=== PATIENT | female | born 1955 | race Caucasian/White ===

== ENCOUNTER 2018-10-06 14:37 | Emergency (ER) | payer OTHER ==
[2018-10-06 14:53] VITALS: BMI 21.2
--- NOTE | 2018-10-06 14:57 | PDOC ---
History of Present Illness - General Chief Complaint: Blood Pressure Problem Stated Complaint: FOR 1 WEEK HAS HAD ELEVATED HEART RATE AND ELEVA Time Seen by Provider: 10/06/18 14:42 Past History - Past Medical History Allergies/Adverse Reactions: Allergies Allergy/AdvReac Type Severity Reaction Status Date / Time No Known Allergies Allergy Unverified 10/06/18 14:40 Home Medications: Ambulatory Orders NK [No Known Home Medication] 10/06/18 COPD: No Other medical history: PARA THYROID - Suicide/Smoking/Psychosocial Hx Smoking History: Former smoker Have you smoked in the past 12 months: No If you are a former smoker, when did you quit?: 34 YEARS AGO Information on smoking cessation initiated: No Hx Alcohol Use: Yes (SOCIAL) Drug/Substance Use Hx: No *Physical Exam - Vital Signs Last Vital Signs Temp Pulse Resp BP Pulse Ox 97.7 F 95 H 16 137/93 100 10/06/18 14:40 10/06/18 14:40 10/06/18 14:40 10/06/18 14:40 10/06/18 14:40 Moderate Sedation - Procedure Monitoring Vital Signs: Procedure Monitoring Vital Signs Temperature 97.7 F 10/06/18 14:40 Pulse Rate 95 H 10/06/18 14:40 Respiratory Rate 16 10/06/18 14:40 Blood Pressure 137/93 10/06/18 14:40 O2 Sat by Pulse Oximetry (%) 100 10/06/18 14:40 *DC/Admit/Observation/Transfer - Discharge Dispostion Condition at time of disposition: Stable - Referrals - Patient Instructions - Post Discharge Activity
--- NOTE | 2018-10-06 16:16 | PDOC ---
Attending Attestation - Resident Resident Name: Isha Corcoran - ED Attending Attestation I have performed the following: I have examined & evaluated the patient, The case was reviewed & discussed with the resident, I agree w/resident's findings & plan - HPI HPI: 10/06/18 16:14 Pt comes with chest tachycardia and elevated BP. No chest pain and no fever and no SOB and no smoking and no other illness. - Physicial Exam PE: 10/06/18 16:15 Agree with resident exam. Pt has a totally normal exam - Medical Decision Making 10/06/18 16:15 CXR normal EKG NSR; RBBB 10/06/18 16:16 Pt's labs pending 10/06/18 17:05 All labs normal; d-dimer pending. 10/06/18 18:15 Pt signed out to the night ER doc
[2018-10-06 16:24] LABS: BASO % 0.5 % (0-2.0); EOS % 2.2 % (0-4.5); HEMATOCRIT 34.6 % (32.4-45.2); HEMOGLOBIN 11.6 GM/dl (10.7-15.3); LYMPH % 18.5 % (8-40); MCH 28.1 pg (25.7-33.7); MCHC 33.5 g/dl (32.0-36.0); MEAN PLT VOLUME 9.1 fl (7.5-11.1); MONO % 10.4 % (3.8-10.2); NEUT % 68.4 % (42.8-82.8); PLATELET COUNT 212 K/MM3 (134-434); RBC 4.12 M/mm3 (3.60-5.2); WHITE BLOOD COUNT 3.9 K/mm3 (4.0-10.8)
[2018-10-06 16:26] LABS: ALBUMIN 4.1 g/dl (3.4-5.0); ALK PHOS 90 U/L (45-117); ANION GAP 7 MMOL/L (8-16); BILIRUBIN,TOTAL 0.5 mg/dl (0.2-1); BLOOD UREA NITROGEN 26 mg/dl (7-18); CALCIUM 9.1 mg/dl (8.5-10); CHLORIDE 102 mmol/L (98-107); CO2 27 mmol/L (21-32); CREATININE 0.9 mg/dl (0.55-1.3); GLUCOSE,RANDOM 94 mg/dl (74-106); POTASSIUM 3.8 mmol/L (3.5-5.1); SGOT/AST 21 U/L (15-37); SGPT/ALT 17 U/L (13-61); SODIUM 136 mmol/L (136-145); TOT PROT 6.5 g/dl (6.4-8.2)
--- NOTE | 2018-10-06 19:21 | PDOC ---
*Physical Exam - Vital Signs Last Vital Signs Temp Pulse Resp BP Pulse Ox 97.7 F 80 16 118/55 L 100 10/06/18 14:40 10/06/18 15:58 10/06/18 15:58 10/06/18 18:23 10/06/18 14:40 ED Treatment Course - LABORATORY CBC & Chemistry Diagram: 10/06/18 15:34 10/06/18 15:34 - ADDITIONAL ORDERS Additional order review: Laboratory Results 10/06/18 10/06/18 10/06/18 15:34 15:34 15:34 D-Dimer < 215 Sodium 136 Potassium 3.8 Chloride 102 Carbon Dioxide 27 Anion Gap 7 L BUN 26 H Creatinine 0.9 Creat Clearance w eGFR > 60 Random Glucose 94 Calcium 9.1 Total Bilirubin 0.5 AST 21 ALT 17 Alkaline Phosphatase 90 Creatine Kinase 78 Troponin I < 0.03 Total Protein 6.5 Albumin 4.1 10/06/18 15:34 RBC 4.12 MCV 84.0 MCHC 33.5 RDW 13.0 MPV 9.1 Neutrophils % 68.4 Lymphocytes % 18.5 Monocytes % 10.4 H Eosinophils % 2.2 Basophils % 0.5 Progress Note - Progress Note Progress Note: Care of this patient was transferred to ma from Dr. Davidson at 1800 hrs. Patient is a 63-year-old female who comes in complaining of some chest palpitations otherwise no chest pain, shortness of breath or other complaints. Patient's EKG showed a right bundle branch block but otherwise normal Patient had a workup including cardiac and d-dimer all of which were normal Patient will be discharged home and will follow-up with her primary care doctor. *DC/Admit/Observation/Transfer Diagnosis at time of Disposition: Heart palpitations - Discharge Dispostion Disposition: HOME Condition at time of disposition: Stable Decision to Admit order: No - Referrals - Patient Instructions Additional Instructions: Your workup was normal for any acute problems or heart problems. Return to the emergency department immediately with ANY new, persistent or worsening symptoms. Continue any medications as previously prescribed by your physician. You should follow up with your primary doctor as soon as possible regarding today's emergency department visit. . Please make sure your doctor reviews the results of your emergency evaluation. Thank you for coming to the Emergency Department today for your care. It was a pleasure to see you today. Please note that your evaluation is INCOMPLETE until you follow-up with your doctor. - Post Discharge Activity
[2018-10-06 19:37] VITALS: BP 134/85; PULSE 82; TEMP 97.5
--- NOTE | 2018-10-07 09:40 | EKG ---
Test Reason : Blood Pressure : / mmHG Vent. Rate : 092 BPM Atrial Rate : 092 BPM P-R Int : 114 ms QRS Dur : 086 ms QT Int : 378 ms P-R-T Axes : 068 065 050 degrees QTc Int : 467 ms NORMAL SINUS RHYTHM NORMAL ECG NO PREVIOUS ECGS AVAILABLE Confirmed by RYAN VILLEGAS, CORINA ([id number]) on 10/07/2018 9:40:36 AM Referred By: MD RIOS Confirmed By:CORINA DAVIS MD
== END 2018-10-06 19:37 | disposition home or self-care (01) ==
LOC: FER 14:37
DX: R00.2 Palpitations (principal)
CPT/HCPCS: 36415; 71046-TC-FY; 80053; 82550; 84484; 85025; 85379; 93005; 99283-25